=== PATIENT | female | born 1965 | race Caucasian/White ===

== ENCOUNTER → 2018-06-05 | Outpatient (CLI) | payer OTHER ==
[2018-06-05 10:24] LABS: BASO # 0.1 10^3/uL (0.0-0.2); BASO % 1.7 % (0.0-1.0); EOS # 0.2 10^3/uL (0.0-0.50); HEMOGLOBIN 13.7 g/dl (12.0-15.5); LYMPH # 2.1 10^3/uL (1.5-4.5); LYMPH % 35.5 % (24.0-44.0); MEAN CORPUSCULAR HEMOGLOBIN 28.6 pg (27.0-33.0); MEAN CORPUSCULAR HGB CONC 31.9 g/dl (32.0-36.5); MEAN CORPUSCULAR VOLUME 89.8 fl (80.0-96.0); MONO # 0.4 10^3/uL (0.0-0.8); MONO % 7.3 % (0.0-5.0); NEUTROPHILS # 3.1 10^3/uL (1.8-7.7); NEUTROPHILS % 51.3 % (36.0-66.0); PLATELET COUNT, AUTOMATED 395 10^3/uL (150-450); RED BLOOD COUNT 4.79 10^6/uL (4.00-5.40)
[2018-06-05 10:52] LABS: ALBUMIN 3.7 GM/DL (3.2-5.2); BILIRUBIN,TOTAL 0.2 MG/DL (0.2-1.0); CALCIUM LEVEL 9.2 MG/DL (8.5-10.1); CREATININE FOR GFR 1.08 MG/DL (0.55-1.30); GLOMERULAR FILTRATION RATE 57.2 (>51); POTASSIUM SERUM 4.7 MEQ/L (3.5-5.1); TOTAL PROTEIN 6.7 GM/DL (6.4-8.2)
== END ==
LOC: M SMT 08:25
PROVIDERS: ATTEND Physician Assistant
DX: I10 Essential (primary) hypertension (principal)

== ENCOUNTER → 2018-08-28 | Outpatient (CLI) | payer OTHER ==
[2018-08-28 13:24] LABS: BASO # 0.1 10^3/uL (0.0-0.2); EOS # 0.2 10^3/uL (0.0-0.50); EOS % 3.6 % (0.0-3.0); HEMATOCRIT 42.6 % (36.0-47.0); HEMOGLOBIN 13.7 g/dl (12.0-15.5); LYMPH # 1.9 10^3/uL (1.5-4.5); LYMPH % 31.9 % (24.0-44.0); MEAN CORPUSCULAR HEMOGLOBIN 28.7 pg (27.0-33.0); MEAN CORPUSCULAR HGB CONC 32.2 g/dl (32.0-36.5); MEAN CORPUSCULAR VOLUME 89.3 fl (80.0-96.0); MONO # 0.4 10^3/uL (0.0-0.8); MONO % 6.3 % (0.0-5.0); NEUTROPHILS # 3.3 10^3/uL (1.8-7.7); PLATELET COUNT, AUTOMATED 315 10^3/uL (150-450); RED BLOOD COUNT 4.77 10^6/uL (4.00-5.40); WHITE BLOOD COUNT 5.9 10^3/uL (4.0-10.0)
[2018-08-28 13:41] LABS: ALBUMIN 3.7 GM/DL (3.2-5.2); BILIRUBIN,TOTAL 0.2 MG/DL (0.2-1.0); CALCIUM LEVEL 9.1 MG/DL (8.5-10.1); CREATININE FOR GFR 1.08 MG/DL (0.55-1.30); GLOMERULAR FILTRATION RATE 57.2 (>51); POTASSIUM SERUM 4.9 MEQ/L (3.5-5.1); TOTAL PROTEIN 6.6 GM/DL (6.4-8.2)
[2018-08-28 15:32] LABS: HEMOGLOBIN A1c 8.1 %
== END ==
LOC: M SMT 09:32
PROVIDERS: ATTEND Physician Assistant
DX: I10 Essential (primary) hypertension (principal)

== ENCOUNTER 2018-09-13 07:42 | Day surgery (SDC) | payer OTHER ==
[~2018-09-13] VITALS: Ht 162.6 cm; Wt 82.1 kg
[~2018-09-13 07:42] MED LIST: HM V4000 PO; LANTINJ4 SQ; MAGN400C PO; METF500T4 PO; MULTCAP PO; NS 1,000 ML IV ONE; SITA50TAB PO; TRUL10IN SQ
[2018-09-13] MEDS ORDERED: LIDOCAINE 2% INJ 100 MG/5 ML SDV (FOR ANES.) As Ordered ONE (08:29)
[2018-09-13] MEDS ORDERED: PROPOFOL 200 MG/20 ML VIAL As Ordered ONE (08:29)
--- NOTE | 2018-09-13 09:53 | ROOR ---
Patient Name: Joselin Santoyo Procedure Date: 09/13/2018 9:08 AM Date of : 1965 Age: 52 Room: [facility] Gender: Female Note Status: Finalized Procedure: Colonoscopy Indications: Screening for colorectal malignant neoplasm Providers: Rajesh Ortiz MD Referring MD: Alexa SIMMONS DO Requesting Provider: Medicines: Monitored Anesthesia Care Complications: No immediate complications. Procedure: Pre-Anesthesia Assessment: - Prior to the procedure, a History and Physical was performed, and patient medications and allergies were reviewed. The patient is competent. The risks and benefits of the procedure and the sedation options and risks were discussed with the patient. All questions were answered and informed consent was obtained. Patient identification and proposed procedure were verified by the physician, the nurse and the anesthesiologist in the endoscopy suite. Mental Status Examination: alert and oriented. Airway Examination: normal oropharyngeal airway and neck mobility. Respiratory Examination: clear to auscultation. CV Examination: normal. Prophylactic Antibiotics: The patient does not require prophylactic antibiotics. Prior Anticoagulants: The patient has taken no previous anticoagulant or antiplatelet agents. ASA Grade Assessment: II - A patient with mild systemic disease. After reviewing the risks and benefits, the patient was deemed in satisfactory condition to undergo the procedure. The anesthesia plan was to use monitored anesthesia care (MAC). Immediately prior to administration of medications, the patient was re-assessed for adequacy to receive sedatives. The heart rate, respiratory rate, oxygen saturations, blood pressure, adequacy of pulmonary ventilation, and response to care were monitored throughout the procedure. The physical status of the patient was re-assessed after the procedure. The Colonoscope was introduced through the anus and advanced to the cecum, identified by appendiceal orifice and ileocecal valve. The colonoscopy was performed without difficulty. The patient tolerated the procedure well. The quality of the bowel preparation was good. Findings: The perianal and digital rectal examinations were normal. A patchy area of mildly ring-like mucosa was found in the cecum. Biopsies were taken with a cold forceps for histology. Estimated blood loss was minimal. The ileocecal valve was mildly lipomatous. Biopsies were taken with a cold forceps for histology. Estimated blood loss was minimal. A diminutive polyp was found in the ascending colon. The polyp was flat. The polyp was removed with a jumbo cold forceps. Resection and retrieval were complete. Estimated blood loss was minimal. A 5 mm polyp was found in the sigmoid colon. The polyp was flat. The polyp was removed with a jumbo cold forceps. Resection and retrieval were complete. Estimated blood loss was minimal. The retroflexed view of the distal rectum and anal verge was normal and showed no anal or rectal abnormalities. Impression: - Ring-like mucosa in the cecum. Biopsied. - Lipomatous ileocecal valve. Biopsied. - One diminutive polyp in the ascending colon, removed with a jumbo cold forceps. Resected and retrieved. - One 5 mm polyp in the sigmoid colon, removed with a jumbo cold forceps. Resected and retrieved. - The distal rectum and anal verge are normal on retroflexion view. Recommendation: - Discharge patient to home (ambulatory). - Return to my office as previously scheduled. - Await pathology results. - Repeat colonoscopy in 5 years for surveillance based on pathology results. Rajesh Ortiz MD Rajesh Ortiz MD 09/13/2018 9:53:29 AM Electronically signed by Rajesh Ortiz MD Number of Addenda: 0 Note Initiated On: 09/13/2018 9:08 AM Estimated Blood Loss: Estimated blood loss was minimal.
[2018-09-13 10:13] VITALS: BP 150/82
== END 2018-09-13 10:25 | disposition home or self-care (01) ==
LOC: M OPP 07:42
PROVIDERS: ATTEND Surgery
DX: K63.5 Polyp of colon (principal); K63.89 Other specified diseases of intestine; Z12.11 Encounter for screening for malignant neoplasm of colon

== ENCOUNTER → 2018-10-10 | Outpatient (REF) | payer OTHER ==
[~2018-10-10] MED LIST changes: -NS 1,000 ML IV ONE
[2018-10-13 15:46] LABS: HPV HYBRID CAPTURE II Negative (Negative)
== END ==
LOC: M LAB REF 15:20
PROVIDERS: ATTEND Advanced Practice Midwife
DX: Z12.4 Encounter for screening for malignant neoplasm of cervix (principal)
CPT/HCPCS: 87624; G0123

== ENCOUNTER → 2018-10-23 | Outpatient (CLI) | payer OTHER ==
--- NOTE | 2018-10-24 09:14 | REPMRS ---
Patient History The patient states she had a clinical breast exam in October 2018.No known family history of cancer. denied. 2D only. Digital Mammo Screening Bilat: October 23, 2018 - Exam #: [id number] Bilateral CC and MLO view(s) were taken. Technologist: Catherine Guerrero, Technologist No prior studies available for comparison. FINDINGS: There are scattered fibroglandular densities. There is no evidence of dominant mass, architectural distortion, or clustered microcalcification typical of malignancy. Assessment: BI-RADS/ACR category 1 mammogram. Negative Mammogram. Recommendation Routine screening mammogram of both breasts in 1 year (for women over age 40). This patient's Lifetime Breast Cancer RIsk is estimated at 10.7 %. This mammogram was interpreted with the aid of an FDA-approved computer-aided dectection system. Electronically Signed By: David Sherwood MD 10/24/18 0973
== END ==
LOC: M RAD 09:35
PROVIDERS: ATTEND Advanced Practice Midwife
DX: Z12.31 Encounter for screening mammogram for malignant neoplasm of breast (principal)

== ENCOUNTER → 2019-03-23 | Outpatient (CLI) | payer OTHER ==
[~2019-03-23] MED LIST changes: +METF-791 PO; -METF500T4 PO
[2019-03-23 13:49] LABS: ALBUMIN 3.5 GM/DL (3.2-5.2); ALT/SGPT 18 U/L (12-78); BILIRUBIN,TOTAL 0.3 MG/DL (0.2-1.0); BLOOD UREA NITROGEN 12 MG/DL (7-18); CALCIUM LEVEL 9.5 MG/DL (8.5-10.1); CARBON DIOXIDE LEVEL 27 MEQ/L (21-32); CHLORIDE LEVEL 106 MEQ/L (98-107); CREATININE FOR GFR 0.94 MG/DL (0.55-1.30); GLOMERULAR FILTRATION RATE > 60.0 (>51); GLUCOSE, FASTING 110 MG/DL (70-100); POTASSIUM SERUM 5.4 MEQ/L (3.5-5.1); SODIUM LEVEL 140 MEQ/L (136-145); TOTAL PROTEIN 6.5 GM/DL (6.4-8.2)
[2019-03-23 15:01] LABS: HEMOGLOBIN A1c 7.3 %
== END ==
LOC: M SMT 09:13
PROVIDERS: ATTEND Physician Assistant
DX: E11.9 Type 2 diabetes mellitus without complications (principal)

== ENCOUNTER → 2019-07-09 | Outpatient (REF) | payer OTHER ==
[2019-07-09 13:24] LABS: ALT/SGPT 21 U/L (12-78); BILIRUBIN,TOTAL 0.3 MG/DL (0.2-1.0); BLOOD UREA NITROGEN 17 MG/DL (7-18); CALCIUM LEVEL 9.6 MG/DL (8.5-10.1); CARBON DIOXIDE LEVEL 31 MEQ/L (21-32); CHLORIDE LEVEL 104 MEQ/L (98-107); CREATININE FOR GFR 0.98 MG/DL (0.55-1.30); GLOMERULAR FILTRATION RATE > 60.0 (>51); GLUCOSE, FASTING 79 MG/DL (70-100); POTASSIUM SERUM 4.4 MEQ/L (3.5-5.1); SODIUM LEVEL 138 MEQ/L (136-145); TOTAL PROTEIN 7.2 GM/DL (6.4-8.2)
[2019-07-09 13:34] LABS: MALB URINE SIEMENS 21.5 MG/L; MAU/CREAT RATIO 16.1 MCG/MG (0.0-30.0)
[2019-07-09 13:44] LABS: HEMOGLOBIN A1c 6.6 %
== END ==
LOC: M LABDRAW1 08:52
PROVIDERS: ATTEND Physician Assistant
DX: E11.9 Type 2 diabetes mellitus without complications (principal)

== ENCOUNTER → 2020-04-14 | Outpatient (CLI) | payer OTHER ==
[~2020-04-14] MED LIST changes: -METF-791 PO; +METF-838 PO
[2020-04-14 14:11] LABS: ALBUMIN 3.6 GM/DL (3.2-5.2); BILIRUBIN,TOTAL 0.3 MG/DL (0.2-1.0); CALCIUM LEVEL 9.1 MG/DL (8.5-10.1); CHOLESTEROL RISK RATIO 2.717 (<5); CREATININE FOR GFR 1.09 MG/DL (0.55-1.30); GLOMERULAR FILTRATION RATE 56.1 (>51); TOTAL PROTEIN 6.6 GM/DL (6.4-8.2)
[2020-04-14 15:34] LABS: HEMOGLOBIN A1c 7.1 %
== END ==
LOC: M PLALAB 09:02
PROVIDERS: ATTEND Physician Assistant
DX: E11.9 Type 2 diabetes mellitus without complications (principal); E78.00 Pure hypercholesterolemia, unspecified

== ENCOUNTER → 2020-06-03 | Outpatient (CLI) | payer OTHER ==
--- NOTE | 2020-06-04 07:28 | REP ---
INDICATION: SKULL,HEAD,COMPLETE,MIN 4 VIEWS COMPARISON: None. TECHNIQUE: Complete skull series (5 views) FINDINGS: Calvarium is intact and appears normal. No lytic or blastic lesions are identified. No obvious acute or healed injury. Visualized facial bones are intact. Visualized sinuses are clear. IMPRESSION: Normal skull radiograph. No significant lytic or blastic lesions identified.. <Electronically signed by Stephane Rayo > 06/04/20 0720
== END ==
LOC: M RAD 10:31
PROVIDERS: ATTEND Plastic Surgery Surgery of the Hand
DX: L72.12 Trichodermal cyst (principal)

== ENCOUNTER → 2020-06-30 | Outpatient (CLI) | payer OTHER ==
[~2020-06-30] MED LIST changes: +D3 +TAB PO; +MULT1CAP3 PO
[2020-06-30 11:20] LABS: BASO # 0.1 10^3/uL (0.0-0.2); BASO % 1.9 % (0.0-1.0); EOS # 0.2 10^3/uL (0.0-0.5); EOS % 3.4 % (0.0-3.0); HEMATOCRIT 38.5 % (36.0-47.0); LYMPH # 2.3 10^3/uL (1.5-5.0); MEAN CORPUSCULAR HEMOGLOBIN 26.9 pg (27.0-33.0); MEAN CORPUSCULAR HGB CONC 31.2 g/dl (32.0-36.5); MEAN CORPUSCULAR VOLUME 86.3 fl (80.0-96.0); MONO # 0.5 10^3/uL (0.0-0.8); MONO % 7.9 % (2.0-8.0); NEUTROPHILS # 2.7 10^3/uL (1.5-8.5); NEUTROPHILS % 46.6 % (36.0-66.0); PLATELET COUNT, AUTOMATED 442 10^3/uL (150-450); RED BLOOD COUNT 4.46 10^6/uL (4.00-5.40); WHITE BLOOD COUNT 5.8 10^3/uL (4.0-10.0)
[2020-06-30 11:39] LABS: HEMOGLOBIN A1c 6.3 %
[2020-06-30 11:48] LABS: ALT/SGPT 20 U/L (12-78); BLOOD UREA NITROGEN 18 MG/DL (7-18); CALCIUM LEVEL 9.2 MG/DL (8.5-10.1); CARBON DIOXIDE LEVEL 28 MEQ/L (21-32); CHLORIDE LEVEL 105 MEQ/L (98-107); GLOMERULAR FILTRATION RATE > 60.0 (>51); GLUCOSE, FASTING 65 MG/DL (70-100); POTASSIUM SERUM 5.2 MEQ/L (3.5-5.1); SODIUM LEVEL 139 MEQ/L (136-145)
[2020-06-30 11:49] LABS: ALBUMIN 3.6 GM/DL (3.2-5.2); BILIRUBIN,TOTAL 0.2 MG/DL (0.2-1.0); CHOLESTEROL LEVEL 231 MG/DL (<200); CHOLESTEROL RISK RATIO 2.851 (<5); HDL CHOLESTEROL 81 MG/DL (>40); LDL CHOLESTEROL 131 MG/DL (<100); NON-HDL-C 150 MG/DL; TOTAL PROTEIN 6.5 GM/DL (6.4-8.2); TRIGLYCERIDES LEVEL 94 MG/DL (<150)
== END ==
LOC: M PLALAB 08:22
PROVIDERS: ATTEND Physician Assistant
DX: E11.9 Type 2 diabetes mellitus without complications (principal); E78.00 Pure hypercholesterolemia, unspecified

== ENCOUNTER → 2020-07-05 | Outpatient (CLI) | payer OTHER | LOC: M LABSMTC 15:01 | PROVIDERS: ATTEND Anesthesiology | DX: Z01.812 Encounter for preprocedural laboratory examination (principal); Z20.822 Contact with and (suspected) exposure to COVID-19 ==

== ENCOUNTER 2020-07-10 07:03 | Day surgery (SDC) | payer OTHER ==
[~2020-07-10] VITALS: Ht 162.6 cm; Wt 80.7 kg
[~2020-07-10 07:03] MED LIST changes: +CLINDAMYCIN 300 MG in IV 1 EA IV ONE; +LIDOCAINE 1% MDV 20ML VIAL SQ PRN; +LR 1,000 ML IV ONE
[2020-07-10] MEDS ORDERED: BACITRACIN OINTMENT 30GM TUBE As Ordered ONE (09:41)
[2020-07-10] MEDS ORDERED: LIDOCAINE W/EPINEPHRINE 1% 20ML VIAL As Ordered ONE (09:41)
[2020-07-10] MEDS ORDERED: MIDAZOLAM INJ 2MG/2ML VIAL (J2250 PER 1MG) As Ordered ONE (09:48)
[2020-07-10] MEDS ORDERED: fentaNYL 100 MCG/2 ML INJECTION (J3010) As Ordered ONE (09:48)
[2020-07-10] MEDS ORDERED: ONDANSETRON 4MG/2ML VIAL As Ordered ONE (09:48)
[2020-07-10] MEDS ORDERED: propofoL 200 MG/20 ML VIAL As Ordered ONE (09:48)
[2020-07-10] MEDS ORDERED: LIDOCAINE 2% 100MG/5ML SDV (FOR ANES.) As Ordered ONE (09:48)
[2020-07-10] MEDS ORDERED: dexameTHASONE 4 MG/ML 1ML VIAL (J1100 PER 1MG) As Ordered ONE (09:48)
[2020-07-10] MEDS ORDERED: KETOROLAC 60MG 2ML VIAL As Ordered ONE (10:29)
[2020-07-10] MEDS ORDERED: LR 1,000 ML IV SCH (11:05)
[2020-07-10] MEDS ORDERED: ONDANSETRON 4MG/2ML VIAL IV PRN (11:05)
[2020-07-10] MEDS ORDERED: PERCOCET 5MG/325MG TAB PO PRN (11:05)
[2020-07-10] MEDS ORDERED: METOCLOPRAMIDE INJ 10MG/2ML VIAL (J2765 PER 1) IV PRN (11:05)
--- NOTE | 2020-07-10 11:07 | POST-OPPD ---
Postoperative Procedure Note Date Of Procedure: Jul 10, 2020 PREOPERATIVE DIAGNOSIS: Multiple scalp cyst POSTOPERATIVE DIAGNOSIS: same FINDINGS: scalp cysts total 8. PROCEDURE: Excision multiple cysts scalp. SURGEON: Dr Beck ANESTHESIA: General SPECIMENS: Scalp cysts ESTIMATED BLOOD LOSS: 5 cc REPLACED: none DRAINS: none COMPLICATIONS: none POSTOPERATIVE CONDITION: stable JUDY BECK DO Jul 10, 2020 11:07
--- NOTE | 2020-07-10 11:08 | ROOPDOC ---
[facility] Report Of Operation Report of Operation DATE OF PROCEDURE: 07/10/20 PREOPERATIVE DIAGNOSIS: Multiple scalp cysts POSTOPERATIVE DIAGNOSIS: same FINDINGS: scalp cysts total 8. PROCEDURE: Excision multiple cysts scalp. SURGEON: Dr Beck ANESTHESIA: General SPECIMENS: Scalp cysts ESTIMATED BLOOD LOSS: 5 cc REPLACED: none DRAINS: none COMPLICATIONS: none POSTOPERATIVE CONDITION: stable Procedure: This is a 54-year-old female who has history of multiple cysts t hroughout her scalp. They very incised from 2 to 1 cm in diameter, some of them adjusted to each other. Patient had some of them removed several years ago however they returned again larger in size now and causing significant discomfort. Patient would like to have removed. Informed consent obtained from the patient. She was marked in preoperative holding area. We identified 7 areas with 1 cluster area. After informed consent was confirmed, patient brought into the operating room, placed in supine position. Preoperative antibiotics given, sequential stockings placed and lower calves, general anesthesia is induced. 1% lidocaine with epinephrine was infiltrated in all the areas. This started out procedure from anterior masses moving gradually to posterior ones. Longitudinal incision made along the most prominent part of the mass, thick capsule was identified with white thick material inside. The cyst is evacuated in all entirety. Wound bed irrigated with bacitracin irrigation, closed in layers with 3-0 and 4-0 Monocryl sutures. Total of 8 cysts evacuated. All incisions covered with Bacitracin ointment. Patient extubated in operating room and transferred to recovery room in stable condition. JUDY BECK DO Jul 10, 2020 11:08
[2020-07-10] MEDS ORDERED: TRAM-533 PO (11:12)
[2020-07-10] MEDS ORDERED: LABETALOL 100MG/20ML VIAL As Ordered ONE (11:30)
[2020-07-10] MEDS: LABETALOL 100MG/20ML VIAL IV SCH ×3 (11:36→11:46)
[2020-07-10] MEDS: fentaNYL 100 MCG/2 ML INJECTION (J3010) IV PRN ×2 (11:36→11:43)
[2020-07-10 11:46] VITALS: BP 144/83
[2020-07-10 12:05] VITALS: BP 123/72
== END 2020-07-10 12:40 | disposition home or self-care (01) ==
LOC: M SDC 07:03
PROVIDERS: ATTEND Plastic Surgery Surgery of the Hand
DX: L72.12 Trichodermal cyst (principal); E11.9 Type 2 diabetes mellitus without complications; Z79.4 Long term (current) use of insulin; Z79.84 Long term (current) use of oral hypoglycemic drugs; Z88.0 Allergy status to penicillin
CPT/HCPCS: 11421; 11422; 88304; J1100; J1885; J2250; J2405; J3010

== ENCOUNTER → 2020-09-19 | Outpatient (REF) | payer OTHER ==
[~2020-09-19] MED LIST changes: -CLINDAMYCIN 300 MG in IV 1 EA IV ONE; -LIDOCAINE 1% MDV 20ML VIAL SQ PRN; -LR 1,000 ML IV ONE; +TRAM-533 PO
== END ==
LOC: M LAB REF 18:56
PROVIDERS: ATTEND Plastic Surgery Surgery of the Hand
DX: L72.11 Pilar cyst (principal)

== ENCOUNTER → 2021-03-24 | Outpatient (CLI) | payer OTHER ==
[2021-03-24 11:15] LABS: BLOOD UREA NITROGEN 19 MG/DL (7-18); CALCIUM LEVEL 9.6 MG/DL (8.5-10.1); CARBON DIOXIDE LEVEL 31 MEQ/L (21-32); CHLORIDE LEVEL 106 MEQ/L (98-107); GLOMERULAR FILTRATION RATE > 60.0 (>51); GLUCOSE, FASTING 80 MG/DL (70-100); POTASSIUM SERUM 5.3 MEQ/L (3.5-5.1); SODIUM LEVEL 139 MEQ/L (136-145)
[2021-03-24 11:18] LABS: HEMOGLOBIN A1c 6.9 %
== END ==
LOC: M PLALAB 08:09
PROVIDERS: ATTEND Physician Assistant
DX: E11.9 Type 2 diabetes mellitus without complications (principal)